=== PATIENT | female | born 1985 | race Caucasian/White ===

== ENCOUNTER 2017-11-29 10:44 | Observation (INO) | payer SELFPAY | END 2017-11-29 10:55 | disposition left against medical advice (07) | LOC: L&D 10:44 | PROVIDERS: ADMIT Obstetrics & Gynecology; ATTEND Obstetrics & Gynecology | DX: Z34.92 Encounter for supervision of normal pregnancy, unspecified, second trimester (principal); Z3A.26 26 weeks gestation of pregnancy | CPT/HCPCS: G0378 ==